=== PATIENT | male | born 2000 | race Caucasian/White ===

== ENCOUNTER 2023-10-18 13:08 | Outpatient (AMB) | payer BC, SELFPAY ==
[2023-10-18 13:37] VITALS: BP 118/76; PULSE 107; TEMP 36.6; O2SAT 96; BMI 39.5
--- NOTE | 2023-10-18 13:37 | AM.OFFWIN_ITS ---
Intake Vital Signs 10/18/23 13:37 Height 5 ft 4 in Weight 230 lb BMI 39.5 BP 118/76 Blood Pressure Location Lt brachial Position Sitting Pulse 107 H Pulse Source Pulse Oximeter Temp 97.9 F Temp Source Temporal Artery Scan Pulse Oximetry (%) 96 Oxygen Delivery Method Room Air Intake Visit Reasons: [employer] cough Intake Note: pt is here today for cough started 3 weeks ago Allergies No Known Allergies [No Known Allergies*] Allergy (Verified 10/18/23 13:40) Do you need a note to return to daycare/school/sports/work: No HPI HPI Comments History of Present Illness Details 23-year-old male complaining of these co ngestion sinus pressure and pain with the cough for the last 2 weeks. He also has hearing loss which he anticipates a cerumen impaction so he is requesting ear irrigation Review of Systems Const All systems reviewed & are unremarkable except as noted in HPI and below Physical Exam Vital Signs: Last Vital Signs Temp 97.9 F 10/18/23 13:37 Pulse 107 H 10/18/23 13:37 BP 118/76 10/18/23 13:37 Pulse Ox 96 10/18/23 13:37 Oxygen Delivery Method Room Air 10/18/23 13:37 BMI result Body Mass Index 39.5 HEENT Head: Yes normal to inspection, Yes normocephalic and Yes atraumatic Ears: hearing grossly normal bilaterally and unable to visualize TM (cerumen impaction) bilaterally General nose exam: Normal external nose present Face and sinus: Yes normal facial exam and Yes sinus tenderness Mouth: Normal oral and palatal mucosa present Resp Effort & Inspection: normal respiratory effort Auscultation: clear to auscultation bilaterally Cardio Palpation: normal PMI Rate: regular rate Office Procedures Cerumen Removal From which ear canal was the cerumen removed: bilateral Removal: irrigation Notes: patient tolerated procedure well, no complications and ear canal clear [id number] Irrigation/Lavage Results Reviewed Results Reviewed: resumed the results of ear irrigation with the patient Assessment & Plan Assessment & Plan (1) Sinusitis: Code(s): J32.9 - Chronic sinusitis, unspecified (2) Impacted cerumen: Code(s): H61.20 - Impacted cerumen, unspecified ear Plan: I told the patient to get some Debrox [id number] and use it once a week to soften the cerumen. He will also take amoxicillin for a week for the sinus infection Plan see plan Medications: New amoxicillin 875 mg PO BID 7 days 14 tabs 0RF Coding Level of Care Code Est Pt Level 3 (97252) Diagnoses Sinusitis J32.9 Impacted cerumen H61.20 CPT Codes Office Procedure - CPT: 59247-Drk Irrigation/Lavage ([id number])
== END 2023-10-18 14:16 | disposition home or self-care (01) ==
PROVIDERS: PCP Pediatrics; Visit Provider Physician Assistant Medical
DX: J32.9 Chronic sinusitis, unspecified (principal); H61.23 Impacted cerumen, bilateral
CPT/HCPCS: 69209; 99213